=== PATIENT | female | born 1950 | race Hispanic/Latino ===

== ENCOUNTER 2024-09-09 14:10 | Observation (INO) | payer OTHER ==
[~2024-09-09] VITALS: Ht 157.5 cm; Wt 46.3 kg
[2024-09-09] MEDS: morPHINE 2 MG SYG IVP ONE ×2 (15:30→20:45)
[2024-09-09] MEDS: ondanSETRON 4MG INJ IVP ONE ×2 (15:30→20:44)
[2024-09-09 15:51] LABS: BASOPHILS # (AUTO) 0.06 K/uL (0.00-0.20); BASOPHILS % (AUTO) 0.6 % (0.0-5.0); EOSINOPHILS % (AUTO) 0.9 % (0.0-8.0); HEMATOCRIT 39.2 % (36-48); IMMATURE GRANULOCYTE ABSOLUTE 0.05 K/uL (0-1); LYMPHOCYTES # (AUTO) 1.6 K/uL (1.0-4.8); LYMPHOCYTES % (AUTO) 14.4 % (21.0-51.0); MEAN CORPUSCULAR HEMOGLOBIN 32.5 pg (27.0-33.0); MEAN CORPUSCULAR HGB CONC 33.7 g/dL (32.0-36.0); MEAN CORPUSCULAR VOLUME 96.6 fL (79-99); MONOCYTES # (AUTO) 0.5 K/uL (0.1-1.0); MONOCYTES % (AUTO) 4.8 % (3.0-13.0); NEUTROPHILS # (AUTO) 8.5 K/uL (1.8-7.7); NEUTROPHILS % (AUTO) 78.8 % (40.0-77.0); PLATELET COUNT (AUTO) 211 K/uL (130-400); RED BLOOD CELL COUNT(AUTO) 4.06 MIL/uL (4.00-5.50); RED CELL DISTRIBUTION WIDTH 13.6 % (11.0-15.5); WHITE BLOOD COUNT (AUTO) 10.8 K/uL (4.8-10.8)
[2024-09-09 16:17] LABS: B-TYPE NATRIURETIC PEPTIDE 29 pg/mL (0-100)
[2024-09-09 16:22] LABS: CREATININE 0.7 mg/dL (0.5-1.0); POTASSIUM 4.1 mmol/L (3.5-5.1)
--- NOTE | 2024-09-09 16:24 | HMCIMG ---
Exam Type: CHEST 1VW Clinical Information: CHEST PAIN Comparison: None Findings: The lungs are clear of infiltrates. The heart is normal in size. The bony and soft tissue structures of the chest are unremarkable. Impression: Clear lungs.
[2024-09-09 16:30] LABS: ALANINE AMINOTRANSFERASE 29 U/L (12-78); ALBUMIN 3.8 g/dL (3.5-5.0); ASPARTATE AMINOTRANSFERASE 26 U/L (10-37); BILIRUBIN,DIRECT < 0.1 mg/dL (0.0-0.3); BILIRUBIN,TOTAL 0.3 mg/dL (0.2-1.0); TOTAL PROTEIN, SERUM 7.7 g/dL (6.0-8.3)
[2024-09-09 16:44] LABS: APPEARANCE,URINE CLEAR (CLEAR); BILIRUBIN,URINE NEGATIVE (NEGATIVE); COLOR,URINE YELLOW (YELLOW); GLUCOSE, URINE (UA) NEGATIVE (NEGATIVE); KETONES,URINE 20 mg/dL (NEGATIVE); LEUKOCYTE ESTERASE ,URINE NEGATIVE Leu/uL (NEGATIVE); NITRATE,URINE NEGATIVE (NEGATIVE); OCCULT BLOOD,URINE SMALL (NEGATIVE); PH,URINE 5.5 (5.0-8.0); PROTEIN,URINE 30 mg/dL (NEGATIVE); UROBILINOGEN,URINE 0.2 mg/dL (0.2-1.0)
[2024-09-09 16:50] LABS: ADD UA MICROSCOPIC YES
[2024-09-09 16:52] LABS: MUCUS,URINE RARE LPF (None Seen); SQUAMOUS EPITHELIAL CELL,UR RARE /HPF (0-2); WBC,URINE 0-1 /HPF (0-1)
--- NOTE | 2024-09-09 16:54 | EKG ---
[facility] Test Date: 2024-09-09 Test Time: 15:10:37 Pat Name: JOHNSON DA SILVA Department: [facility] Room: 209 Gender: F Running Rigger: [id number] : 1950 Requested By: SYLVIA TURNER Order Number: [id number] Reading MD: Jayant Otto Measurements Intervals [place] Rate: 82 P: 48 OK: 150 QRS: 34 QRSD: 76 T: 15 QT: 364 QTc: 427 Interpretive Statements Sinus rhythm No previous ECG available for comparison Electronically Signed On 09-10-2024 14:09:12 [employer] by Jayant Otto Please click the below link to view image of tracing.
--- NOTE | 2024-09-09 18:28 | ERN ---
ED Note History of Present Illness Stated Complaint: DIZZY, STOMACH PAIN, SIATICA BACK PAIN Chief Complaint: Abdominal Pain Time Seen by MD: 17:25 Time Seen by Midlevel: 17:25 Dictation: Patient is a 74-year-old female with no past medical history who presents to the emergency department with generalized abdominal pain onset three days ago associated with nausea nonbloody vomiting x4. Patient denies any diarrhea, constipation, fevers. Reports pain radiates to the back. Allergies: Coded Allergies: No Known Drug Allergies (Unverified Allergy, Unknown, 09/09/24) Home Meds Active Scripts Famotidine (Pepcid) 40 Mg Tablet, 1 TAB PO HS for 30 Days, #30 TAB 0 Refills Prov:STEPHANIE AMAYA 09/12/24 Past Medical History Past Medical History: No Pertinent History Surgical History: None RN Note Reviewed/Agreed w/PFSH: Yes Review of System Dictation Constitutional: Negative for fever,chills, and weight loss Eyes: Negative for injury, pain,redness, and discharge ENT: Negative for injury,pain or swelling Cardiovascular: Negative for chest pain, palpitations, and edema Respiratory: Negative for shortness of breath, cough, and wheezing, Abdomen/GI: Negative for diarrhea, and constipation positive for abdominal pain, nausea and vomiting Back: Negative for injury and pain : Negative for injury, bleeding and discharge MS/Extremity: Negative for injury and deformity Skin: Negative for rash, and discoloration Neuro: Negative for headache, weakness, numbness, tingling, and seizure Psych: Negative for suicide ideation, homicidal ideation, and hallucinations Initial Vital Sign VS Vital Signs Date Time Temp Pulse Resp B/P (MAP) Pulse Ox O2 Delivery O2 Flow Rate FiO2 09/09/24 15:11 98.2 95 20 187/122 Room Air 0 09/09/24 20:00 98 21 Physical Exam Dictation Vital Signs reviewed General Appearance: Alert, oriented x 3, no acute distress, well developed, nourished. Head and Face: non-traumatic. Eyes: PERRL, pink conjunctivas, eyelid no trauma, anterior chamber with arcus senilis. Ears: Pinnas intact and no signs of trauma or erythema ear canals clear and no discharge TM no erythema Nose: No discharge, no bleeding. Oropharynx: Mouth normal, tongue pink. pharynx clear,no erythema, tonsils no exudates, no abscesses noted, mucous membrane moist Neck: Supple, non-tender, no thyromegaly, no masses, no JVD, no bruits Breast:Deferred Chest:No tenderness, no crepitus, no paradoxical movement, no retractions Lungs:Clear, well-ventilated, symmetric, no rales, no wheezing, no rhonchi, no stridor, good breath sounds bilaterally Heart: Regular rate, regular rhythm, no murmur, no gallops Vascular: no peripheral edema, Abdomen: Firm, positive bowel sounds, nondistended, no guarding, nontender, no rebound, no masses no hepatomegaly, no splenomegaly, no Gatica's sign, no hernias. Rectal: Deferred Genital: Deferred Neurological: Normal speech, motor function intact, sensory function intact Musculoskeletal: Neck nontender, full range of motion, back nontender, full range of motion, Extremities: nontender, full range of motion Skin: Color pink, dry, no turgor, no rash, no lacerations, no abrasions, no contusions. Lymphatic: Deferred Results (Laboratory/Radiology) Laboratory/Radiology Laboratory Tests Test 09/09/24 21:57 09/10/24 07:47 09/10/24 07:58 09/10/24 12:27 Whole Blood Glucose 96 MG/DL (70-110) 84 MG/DL (70-110) 71 MG/DL (70-110) White Blood Count 13.8 K/uL (4.8-10.8) #H Red Blood Count 3.94 MIL/uL (4.00-5.50) L Hemoglobin 12.5 g/dL (12.0-16.0) Hematocrit 37.7 % (36-48) Mean Corpuscular Volume 95.7 fL (79-99) Mean Corpuscular Hemoglobin 31.7 pg (27.0-33.0) Mean Corpuscular Hemoglobin Concent 33.2 g/dL (32.0-36.0) Red Cell Distribution Width 13.6 % (11.0-15.5) Platelet Count 184 K/uL (130-400) Mean Platelet Volume 11.9 fL (7.5-10.5) H Immature Granulocyte % (Auto) 0.5 % (0-1) Neutrophils (%) (Auto) 79.7 % (40.0-77.0) H Lymphocytes (%) (Auto) 11.3 % (21.0-51.0) L Monocytes (%) (Auto) 6.3 % (3.0-13.0) Eosinophils (%) (Auto) 1.8 % (0.0-8.0) Basophils (%) (Auto) 0.4 % (0.0-5.0) Neutrophils # (Auto) 11.0 K/uL (1.8-7.7) H Lymphocytes # (Auto) 1.6 K/uL (1.0-4.8) Monocytes # (Auto) 0.9 K/uL (0.1-1.0) Eosinophils # (Auto) 0.25 K/uL (0.00-0.70) Basophils # (Auto) 0.05 K/uL (0.00-0.20) Absolute Immature Granulocyte (auto 0.07 K/uL (0-1) Nucleated Red Blood Cells 0.0 % (0.0-0.19) Phosphorus Level 4.6 mg/dL (2.5-4.9) Magnesium Level 2.20 mg/dL (1.80-2.40) Thyroid Stimulating Hormone (TSH) 1.71 uIU/mL (0.36-3.74) Test 09/10/24 16:28 09/10/24 20:20 09/11/24 04:08 09/11/24 06:28 Whole Blood Glucose 69 MG/DL (70-110) L 68 MG/DL (70-110) L 61 MG/DL (70-110) L White Blood Count 6.3 K/uL (4.8-10.8) # Red Blood Count 3.58 MIL/uL (4.00-5.50) L Hemoglobin 11.5 g/dL (12.0-16.0) L Hematocrit 35.1 % (36-48) L Mean Corpuscular Volume 98.0 fL (79-99) Mean Corpuscular Hemoglobin 32.1 pg (27.0-33.0) Mean Corpuscular Hemoglobin Concent 32.8 g/dL (32.0-36.0) Red Cell Distribution Width 13.4 % (11.0-15.5) Platelet Count 169 K/uL (130-400) Mean Platelet Volume 11.8 fL (7.5-10.5) H Immature Granulocyte % (Auto) 0.3 % (0-1) Neutrophils (%) (Auto) 54.5 % (40.0-77.0) Lymphocytes (%) (Auto) 27.3 % (21.0-51.0) Monocytes (%) (Auto) 9.2 % (3.0-13.0) Eosinophils (%) (Auto) 7.6 % (0.0-8.0) Basophils (%) (Auto) 1.1 % (0.0-5.0) Neutrophils # (Auto) 3.4 K/uL (1.8-7.7) Lymphocytes # (Auto) 1.7 K/uL (1.0-4.8) Monocytes # (Auto) 0.6 K/uL (0.1-1.0) Eosinophils # (Auto) 0.48 K/uL (0.00-0.70) Basophils # (Auto) 0.07 K/uL (0.00-0.20) Absolute Immature Granulocyte (auto 0.02 K/uL (0-1) Nucleated Red Blood Cells 0.0 % (0.0-0.19) Sodium Level 138 mmol/L (136-145) Potassium Level 4.2 mmol/L (3.5-5.1) Chloride Level 104 mmol/L (101-111) Carbon Dioxide Level 29 mmol/L (21-32) Blood Urea Nitrogen 12 mg/dL (7-18) Creatinine 0.7 mg/dL (0.5-1.0) Glomerular Filtration Rate Calc 92 mL/min (>90) Random Glucose 64 mg/dL (70-105) L Total Calcium 8.5 mg/dL (8.5-10.1) Test 09/11/24 11:22 09/11/24 15:40 Whole Blood Glucose 75 MG/DL (70-110) 66 MG/DL (70-110) L REASON: Abdominal pain ORDERING PHYSICIAN: ELLIS MENDOZA MD PROCEDURE: ABD PEL WO - CT ABDOMEN/PELVIS W/O CONTRAST Exam Type: CT ABDOMEN/PELVIS W/O CONTRAST Clinical Information: Abdominal pain Comparison: None CT Dose Index (CTDI): 10.20 mGy Dose Length Product (DLP): 530.00 total mGy-cm PROTOCOL: Routine noncontrast helical scanning of the abdomen and pelvis was performed at 5mm collimation. Findings: No evidence of nephro or ureterolithiasis is found. No hydronephrosis or ureteral dilatation is seen. The lung bases are clear. The stomach is unremarkable. It shows no wall thickening. No gross ulceration is seen. It is not overly distended. There are no surrounding inflammatory changes. No wall lesions are identified to suggest cancer. The spleen is unremarkable. It is not enlarged. The pancreas shows normal anatomy. It is not fatty replaced. It shows no lesions. The pancreatic duct is not dilated. The gallbladder is surgically absent and there is significant dilatation of the common bile duct without intrahepatic bile duct dilatation. This probably represents reservoir effect. The adrenal glands are unremarkable. There is no enlargement. No lesions are noted. The liver is unremarkable. It shows no focal masses. Except for simple cysts The appendix is unremarkable. It shows no evidence of inflammation. No appendicolith is seen. The small bowel is unremarkable. There is no evidence of dilatation to suggest obstruction. No evidence of adynamic ileus is seen. There is no small bowel wall thickening to suggest enteritis. Abundant fecal matter is noted throughout the colon consistent with constipation. The urinary bladder is unremarkable. There is no wall thickening to suggest tumor or inflammation. There are no intraluminal calculi. There are no diverticula. There is no evidence of chronic bladder outlet obstruction. There is no evidence of urinary bladder distention to suggest urinary retention. The other pelvic structures are unremarkable. The bony and vascular structures are unremarkable for the patient's age. IMPRESSION: The gallbladder is surgically absent and there is significant dilatation of the common bile duct without intrahepatic bile duct dilatation. This probably represents reservoir effect. This study was performed using dose reduction techniques to include automated exposure control and/or adjustment of the mA and/or kV according to patient size. REASON: CHEST PAIN ORDERING PHYSICIAN: SYLVIA TURNER MD PROCEDURE: CXR1VW - CHEST 1VW Exam Type: CHEST 1VW Clinical Information: CHEST PAIN Comparison: None Findings: The lungs are clear of infiltrates. The heart is normal in size. The bony and soft tissue structures of the chest are unremarkable. Impression: Clear lungs Labs Reviewed?: Yes EKG: (+) rhythm (Sinus rhythm) EKG Comment: EKG 09/09/2024 1510 ventricular rate 82, regular rate and rhythm, normal sinus rhythm, no STEMI ED Course ED Course Orders Procedure Category Date Status Time Admit Orders ADM 09/09/24 Transmitted 20:32 Ondansetron 4mg Inj PHA 09/09/24 Complete (Zofran 4mg Inj) 21:00 Morphine 2mg Syg PHA 09/09/24 Complete (Morphine 2mg Syg) 21:00 Vital Signs Every 4 CPOE 09/09/24 Transmitted Hours 20:36 Npo Except For Meds CPOE 09/09/24 Transmitted 20:36 O2 Order RT 09/09/24 Transmitted 20:36 Cbc With Differential LAB 09/10/24 Complete 04:00 Magnesium LAB 09/10/24 Complete 04:00 Phosphorus LAB 09/10/24 Complete 04:00 Thyroid Stimulating LAB 09/10/24 Complete Hormone 04:00 Enoxaparin Sodium 30 PHA 09/10/24 Complete Mg/0.3 Ml (Lovenox) 09:00 Acetaminophen 325 Tab PHA 09/09/24 Complete (Tylenol 325mg Tab 21:00 Acetaminophen 650mg PHA 09/09/24 Complete Supp (Tylenol 650mg 21:00 Lactulose 20 Gm/30 Ml PHA 09/09/24 Complete Udcup (Constulose 21:00 Docusate Sodium 100 PHA 09/09/24 Complete Mg Cap (Colace 100mg 21:00 Temazepam 15 Mg Cap PHA 09/09/24 Complete (Restoril 15 Mg Cap) 21:00 Ondansetron 4mg Inj PHA 09/09/24 Complete (Zofran 4mg Inj) 21:00 Hydralazine 20mg Inj PHA 09/09/24 Complete (Apresoline 20mg In 21:00 Apply Scds CPOE 09/09/24 Transmitted 20:36 Telemetry Monitoring CPOE 09/09/24 Transmitted 20:36 Initiate QUAN 09/09/24 Complete Hyperglycemia Protoco 20:36 Insulin Regular, PHA 09/09/24 Complete Human 3ml (Humulin R 21:00 Magnesium 2gm Premix PHA 09/09/24 Complete 50ml (Magnesium 2gm 21:00 Initiate Hypokalemia CPOE 09/09/24 Transmitted Npo Half 20:36 Potassium Chloride PHA 09/09/24 Complete 10meq/100ml (Potassiu 21:00 Notify Physician If CPOE 09/09/24 Transmitted There Is 20:36 Notify Md On The Next CPOE 09/09/24 Transmitted 20:36 Notify Md On The OE 09/09/24 Transmitted Next(Cont.) 20:36 Initiate Hypoglycemia QUAN 09/09/24 Complete Protocol 20:36 Dextrose 50%-Water PHA 09/09/24 Complete (D50w) 21:00 Glucagon 1mg Kit PHA 09/09/24 Complete (Glucagon 1mg Kit) 21:00 Morphine 2mg Syg PHA 09/09/24 Complete (Morphine 2mg Syg) 21:00 Npo Except For Meds [facility] 09/09/24 Transmitted 20:48 Lactated Ringers PHA 09/09/24 Complete 1000ml (Lactated 21:00 Zosyn 3.375gm+Ns 50ml PHA 09/10/24 Complete (Zosyn 3.375gm+Ns 03:00 Bisacodyl (Dulcolax) PHA 09/10/24 Complete 09:30 Bisacodyl (Dulcolax) PHA 09/10/24 Complete 09:30 Lactulose 20 Gm/30 Ml PHA 09/10/24 Complete Udcup (Constulose 09:30 Lactulose 20 Gm/30 Ml PHA 09/10/24 Complete Udcup (Constulose 09:30 Polyethylene Glycol PHA 09/10/24 Complete 3350 (Miralax 3350 1 09:30 Gastroenterology CONPHYSVC 09/10/24 Transmitted Consult 09:15 Basic Metabolic Panel LAB 09/11/24 Complete 04:00 Cbc With Differential LAB 09/11/24 Complete 04:00 Transfer To: [facility] 09/10/24 Transmitted 12:04 Clear Liquid DIET 09/11/24 Complete Breakfast Gi Soft/[place] Diet DIET 09/11/24 Complete Lunch *General Dc DS 09/11/24 Transmitted Instructions 18:41 Vital Signs Date Time Temp Pulse Resp B/P (MAP) Pulse Ox O2 Delivery O2 Flow Rate FiO2 09/11/24 16:00 97.9 59 16 152/70 98 09/11/24 12:00 98.1 66 16 151/68 98 09/11/24 08:45 96 Room Air* 0 21 09/11/24 08:00 97.5 67 16 158/63 96 09/11/24 06:00 98.4 70 18 154/80 98 Room Air 09/11/24 04:25 98.4 76 16 150/70 99 Room Air 09/11/24 00:00 98.6 79 18 155/76 95 Room Air 09/10/24 20:00 96 Room Air* 0 21 09/10/24 19:23 97.5 70 18 157/68 97 Room Air 09/10/24 16:00 98.1 68 20 155/74 99 Room Air 09/10/24 12:00 99.0 66 15 124/58 97 Room Air 09/10/24 11:41 96 Room Air* 0 21 09/10/24 09:00 99.1 72 11 165/80 96 Room Air 09/10/24 07:20 70 17 128/43 96 Room Air* 0 21 09/10/24 06:08 98.8 75 18 128/52 98 Room Air* 0 21 09/10/24 00:04 98.1 80 17 141/54 98 Room Air* 0 09/09/24 21:46 69 17 160/74 98 Room Air* 0 21 Medical Decision Making MDM MDM: Patient is a 74-year-old female with no past medical history who presents to the emergency department with generalized abdominal pain onset three days ago associated with nausea nonbloody vomiting x4. Patient denies any diarrhea, constipation, fevers. Reports pain radiates to the back. CBC showed no leukocytosis, no anemia, chemistry showed normal renal function, normal lipase, normal liver enzymes, slight elevated blood glucose, CT abdomen showed dilated common bile duct. Patient will be admitted for further manageme nt Differential diagnosis: Constipation, bowel obstruction, electrolyte imbalance, ACS Comorbidities: Cholecystectomy Tests considered and not ordered secondary to shared decision making include: none Previous outside records reviewed: none Risk of complication and/or morbidity or mortality of patient management: The patient meets criteria for admission. Need for emergency major/minor surgery: No There are no social concerns with this patient. I independently interpreted the tests I ordered (labs, urinalysis, etc.). I discussed the case with the hospitalist for admission. Diane hall who accepts admission I discussed the case with the following specialists: none. Historian: pateint. I independently interpreted imaging studies and EKGs that I ordered (US, CT, XR, EKG, etc.). External chart review: none. Medical management and examination interpretation discussions were had by me with other qualified healthcare professionals as indicated for the patient's care. DX & DISP Disposition: Inpatient Decision to Admit Date: Sep 09, 2024 Decision to Admit Time: 20:32 Departure Impression: Primary Impression: Common bile duct dilatation Additional Impressions: Abdominal pain, Nausea and vomiting Condition: Stable Scripts Famotidine (Pepcid) 40 Mg Tablet 1 TAB PO HS for 30 Days, #30 TAB 0 Refills Prov: STEPHANIE AMAYA 09/12/24 Referrals: LAMINE HUERTA MD (PCP) I have reviewed the case, and I agree with, Diagnosis and Plan ATTESTATION BY PHYSICIAN I PERFORMED THE SUBSTANTIVE PORTION OF THE VISIT. I HAVE REVIEWED AND PERSONALLY MADE AND APPROVED THE MANAGEMENT PLAN THAT IS DOCUMENTED IN THE NOTE BY MYSELF FOR THE A PP. I ACKNOWLEDGED FOR RESPONSIBILITY FOR THE PATIENT'S MANAGEMENT PLAN. FRANNY CONTRERAS Sep 09, 2024 18:28 KEREN ESTEVEZ MD Sep 12, 2024 20:18
--- NOTE | 2024-09-09 18:58 | HMCIMG ---
Exam Type: CT ABDOMEN/PELVIS W/O CONTRAST Clinical Information: Abdominal pain Comparison: None CT Dose Index (CTDI): 10.20 mGy Dose Length Product (DLP): 530.00 total mGy-cm PROTOCOL: Routine noncontrast helical scanning of the abdomen and pelvis was performed at 5mm collimation. Findings: No evidence of nephro or ureterolithiasis is found. No hydronephrosis or ureteral dilatation is seen. The lung bases are clear. The stomach is unremarkable. It shows no wall thickening. No gross ulceration is seen. It is not overly distended. There are no surrounding inflammatory changes. No wall lesions are identified to suggest cancer. The spleen is unremarkable. It is not enlarged. The pancreas shows normal anatomy. It is not fatty replaced. It shows no lesions. The pancreatic duct is not dilated. The gallbladder is surgically absent and there is significant dilatation of the common bile duct without intrahepatic bile duct dilatation. This probably represents reservoir effect. The adrenal glands are unremarkable. There is no enlargement. No lesions are noted. The liver is unremarkable. It shows no focal masses. Except for simple cysts The appendix is unremarkable. It shows no evidence of inflammation. No appendicolith is seen. The small bowel is unremarkable. There is no evidence of dilatation to suggest obstruction. No evidence of adynamic ileus is seen. There is no small bowel wall thickening to suggest enteritis. Abundant fecal matter is noted throughout the colon consistent with constipation. The urinary bladder is unremarkable. There is no wall thickening to suggest tumor or inflammation. There are no intraluminal calculi. There are no diverticula. There is no evidence of chronic bladder outlet obstruction. There is no evidence of urinary bladder distention to suggest urinary retention. The other pelvic structures are unremarkable. The bony and vascular structures are unremarkable for the patient's age. IMPRESSION: The gallbladder is surgically absent and there is significant dilatation of the common bile duct without intrahepatic bile duct dilatation. This probably represents reservoir effect. This study was performed using dose reduction techniques to include automated exposure control and/or adjustment of the mA and/or kV according to patient size.
[2024-09-09] MEDS: PANTOPrazole 40 MG/VIAL IVP ONE (20:43)
[2024-09-09] MEDS: LACTATED RINGERS 1000ML 1,000 ML IV SCH (20:58)
[2024-09-09] MEDS ORDERED: PoTASSium chloRIDE 10MEQ/100ML 100 ML IV PRN (21:00)
[2024-09-09] MEDS ORDERED: LACTULOSE 20 GM/30 ML UDCUP PO PRN (21:00)
[2024-09-09] MEDS ORDERED: MAGNESIUM 2GM PREMIX 50ML 50 ML IV PRN (21:00)
[2024-09-09] MEDS ORDERED: doCUSate SODIUM 100 MG CAP PO PRN (21:00)
[2024-09-09] MEDS ORDERED: acetaMINOPHEN 325 MG TAB PO PRN (21:00)
[2024-09-09] MEDS ORDERED: DEXTROSE 50%-WATER 50 ML DISP.SYRIN IV PRN (21:00)
[2024-09-09] MEDS ORDERED: hydrALAZine 20MG/ML VIAL IV PRN (21:00)
[2024-09-09] MEDS ORDERED: TEMAZepam 15 MG CAPSULE PO PRN (21:00)
[2024-09-09] MEDS ORDERED: ondanSETRON 4MG INJ IVP PRN (21:00)
[2024-09-09] MEDS ORDERED: GLUCAGON 1MG KIT 1 MG ML IM PRN (21:00)
[2024-09-09] MEDS ORDERED: acetaMINOPHEN 650 MG SUPPOSITORY RC PRN (21:00)
[2024-09-09] MEDS: INSULIN humuLIN R 100 UNIT/ML 3ML SQ SCH (21:00)
[2024-09-09] MEDS: morPHINE 2 MG SYG IVP PRN (22:59)
--- NOTE | 2024-09-10 00:29 | HP ---
[facility] HISTORY & PHYSICAL Date Patient Seen: Sep 10, 2024 Time of Visit: 00:29 Supervising Physician: Dr. Sky Wallis Primary Care Physician: Dr. Roby Cornelius Outpatient Specialists: Inpatient Consults: General surgery: Dr. Laly Keane PROBLEM LIST: Common bile duct dilatation, POA Dehydration (ketonuria, elevated BUN) Acute intractable abdominal pain, POA Intra-abdominal infection (neut % 78.8, lymph % 14.4, neut 8.5.) Acute nausea and vomiting, POA hx of Cholecystectomy HPI: Ms River is a 74-year-old female with no past medical history who presents to the emergency department with generalized abdominal pain onset three days ago associated with nausea nonbloody vomiting x4. Patient denies any diarrhea, constipation, fevers. Reports pain radiates to the back. EKG: SR. CT abdomen and pelvis w/o contrast: The gallbladder is surgically absent and there is significant dilatation of the common bile duct without intrahepatic bile duct dilatation. This probably represents reservoir effect. Chest x-ray: The lungs are clear of infiltrates. The heart is normal in size. The bony and soft tissue structures of the chest are unremarkable. ED provider request patient be admitted with the diagnosis of common bile duct dilatation, abdominal pain, nausea and vomiting. Patient was seen/ assessed by me at bedside in ED 18. Patient appeared comfortable and in no distress. Patient reports that all of a sudden her abdomen starts bloating which causes the pain. Patient reports that she thinks she might have a fever but has not taken a temperature. I informed the patient of labs, diagnostics, and plan of care. The patient verbalized understanding and is agreement with the plan. Plan and assessment are listed below. PAST MEDICAL HX: see above PAST SURGICAL HX: noncontributory SOCIAL HISTORY: No tobacco, ETOH, or illicit drug use Coded Allergies: No Known Drug Allergies (Unverified Allergy, Unknown, 09/09/24) REVIEW OF SYSTEMS: 12 point ROS reviewed with patient. Pertinent positives mentioned above. Otherwise negative. PHYSICAL EXAM: GENERAL: alert, weak, awake oriented x 3 HEENT: EOMI, Sclera non icteric, moist mucosa NECK: Supple, no JVD, trachea midline LUNGS: Clear breath sounds bilaterally. No wheezes HEART: Regular rate and rhythm. Normal S1 and S2, without murmurs ABD: Abdomen soft, generalized tenderness. Bowel sounds present EXT: No clubbing cyanosis or edema NEURO: Alert and oriented X3, follows commands Vital Signs (last 8hr) Date Time Temp Pulse Resp B/P (MAP) Pulse Ox O2 Delivery O2 Flow Rate FiO2 09/10/24 00:04 98.1 80 17 141/54 98 Room Air* 0 21 09/09/24 21:46 69 17 160/74 98 Room Air* 0 21 09/09/24 20:00 97.9 89 16 137/83 98 Room Air* 0 21 LABS: Hematology Labs: Test 09/09/24 15:32 Range/Units White Blood Count 10.8 4.8-10.8 K/uL Red Blood Count 4.06 4.00-5.50 MIL/uL Hemoglobin 13.2 12.0-16.0 g/dL Hematocrit 39.2 36-48 % Mean Corpuscular Volume 96.6 79-99 fL Mean Corpuscular Hemoglobin 32.5 27.0-33.0 pg Mean Corpuscular Hemoglobin Concent 33.7 32.0-36.0 g/dL Red Cell Distribution Width 13.6 11.0-15.5 % Platelet Count 211 130-400 K/uL Mean Platelet Volume 11.6 H 7.5-10.5 fL Immature Granulocyte % (Auto) 0.5 0-1 % Neutrophils (%) (Auto) 78.8 H 40.0-77.0 % Lymphocytes (%) (Auto) 14.4 L 21.0-51.0 % Monocytes (%) (Auto) 4.8 3.0-13.0 % Eosinophils (%) (Auto) 0.9 0.0-8.0 % Basophils (%) (Auto) 0.6 0.0-5.0 % Neutrophils # (Auto) 8.5 H 1.8-7.7 K/uL Lymphocytes # (Auto) 1.6 1.0-4.8 K/uL Monocytes # (Auto) 0.5 0.1-1.0 K/uL Eosinophils # (Auto) 0.10 0.00-0.70 K/uL Basophils # (Auto) 0.06 0.00-0.20 K/uL Absolute Immature Granulocyte (auto 0.05 0-1 K/uL Nucleated Red Blood Cells 0.0 0.0-0.19 % Chemistry Labs: Test 09/09/24 15:32 Range/Units Sodium Level 140 136-145 mmol/L Potassium Level 4.1 3.5-5.1 mmol/L Chloride Level 103 101-111 mmol/L Carbon Dioxide Level 28 21-32 mmol/L Blood Urea Nitrogen 19 H 7-18 mg/dL Creatinine 0.7 0.5-1.0 mg/dL Glomerular Filtration Rate Calc 92 >90 mL/min Random Glucose 125 H 70-105 mg/dL Lactic Acid Level 1.2 0.8-2.5 mmol/L Total Calcium 9.3 8.5-10.1 mg/dL Total Bilirubin 0.3 0.2-1.0 mg/dL Direct Bilirubin < 0.1 0.0-0.3 mg/dL Aspartate Amino Transf (AST/SGOT) 26 10-37 U/L Alanine Aminotransferase (ALT/SGPT) 29 12-78 U/L Alkaline Phosphatase 87 50-136 U/L Total Creatine Kinase 42 21-232 U/L B-Type Natriuretic Peptide 29 0-100 pg/mL Total Protein 7.7 6.0-8.3 g/dL Albumin 3.8 3.5-5.0 g/dL Lipase 49 16-77 U/L Procalcitonin 0.07 0.05-0.5 ng/mL DIAGNOSTICS / RADIOLOGY RESULTS: [ ] PLAN Admit patient to medical floor with telemetry monitoring. NPO for now. Consult general surgery. LR at 75 mL/hour. Zosyn 3.375 IV q.8 hours. P.r.n. medications for: Pain management, nausea, vomiting, fever, constipation, hypertension. Monitor renal and liver function. Monitor electrolytes and treat accordingly. DVT and GI prophylaxis. NEURO: Minimize central acting medications as possible. Maintain fall precautions, adequate lighting during the day PULMONARY: Supplemental 02 as needed. Maintain aspiration precautions at all times CARDIOVASCULAR: Follow hemodynamics. Vital signs per facility protocol GI & NUTRITION: Continue with nutritional support. Continue stool softeners and laxatives as needed. KIDNEYS & ELECTROLYTES: Strict monitoring of intake, output and overall fluid balance. Avoid nephrotoxic medications to the extent possible. Medications to be dosed according to renal function. Monitor electrolytes and replace as needed ENDOCRINE: Maintain blood glucose between 100-180 at all times. Hypoglycemia protocol in place INFECTIOUS DISEASE: Trend temperature, WBC and procalcitonin level Follow cultures, deescalate antibiotics as soon as possible. Panculture if new onset fever ONCOLOGY/HEMATOLOGY/COAGULATION: Monitor for s/s of bleeding Monitor hemoglobin, coagulation studies as needed SKIN: Pressure ulcer prevention per facility protocol Specialty mattress ORTHO/REHAB: Continue PT/OT Prophylaxis: Continue GI and DVT prophylaxis Code Status: Full Resuscitation Disposition: TBD The patient has seen and evaluated, the case has been discussed with the MODEL PHOTOGRAPHERS', I agree with the clinical findings and plan of care, time spend at the bedside more than 40 minutes. GUMARO ZENG Sep 10, 2024 00:29 SKY WALLIS MD Sep 16, 2024 10:57
[2024-09-10] MEDS: ZOSYN 3.375GM +NS 50ML IVPB SCH (05:09)
--- NOTE | 2024-09-10 05:09 | NUR ---
ASSUMED PT CARE
--- NOTE | 2024-09-10 05:24 | NUR ---
MED REC PT NOT ON ANY HOME MEDS
[2024-09-10 08:14] LABS: BASOPHILS # (AUTO) 0.05 K/uL (0.00-0.20); BASOPHILS % (AUTO) 0.4 % (0.0-5.0); EOSINOPHILS # (AUTO) 0.25 K/uL (0.00-0.70); EOSINOPHILS % (AUTO) 1.8 % (0.0-8.0); HEMATOCRIT 37.7 % (36-48); IMMATURE GRANULOCYTE ABSOLUTE 0.07 K/uL (0-1); LYMPHOCYTES # (AUTO) 1.6 K/uL (1.0-4.8); LYMPHOCYTES % (AUTO) 11.3 % (21.0-51.0); MEAN CORPUSCULAR HEMOGLOBIN 31.7 pg (27.0-33.0); MEAN CORPUSCULAR HGB CONC 33.2 g/dL (32.0-36.0); MEAN CORPUSCULAR VOLUME 95.7 fL (79-99); MONOCYTES # (AUTO) 0.9 K/uL (0.1-1.0); MONOCYTES % (AUTO) 6.3 % (3.0-13.0); NEUTROPHILS % (AUTO) 79.7 % (40.0-77.0); PLATELET COUNT (AUTO) 184 K/uL (130-400); RED BLOOD CELL COUNT(AUTO) 3.94 MIL/uL (4.00-5.50); RED CELL DISTRIBUTION WIDTH 13.6 % (11.0-15.5); WHITE BLOOD COUNT (AUTO) 13.8 K/uL (4.8-10.8)
--- NOTE | 2024-09-10 08:21 | NUR ---
gave report to cole no concenrs voiced
[2024-09-10 08:36] LABS: MAGNESIUM 2.2 mg/dL (1.80-2.40); PHOSPHORUS 4.6 mg/dL (2.5-4.9)
[2024-09-10 09:00] VITALS: BP 165/80; PULSE 72; RESP 11; TEMP 99.1
[2024-09-10 09:01] LABS: THYROID STIMULATING HORMONE 1.71 uIU/mL (0.36-3.74)
--- NOTE | 2024-09-10 09:17 | PN ---
[facility] PROGRESS NOTE Date Patient Seen: Sep 10, 2024 Time of Visit: 09:15 Supervising Physician: Dr. Wallis Primary Care Physician: Dr. Roby Cornelius Outpatient Specialists: Inpatient Consults: General surgery: Dr. Laly Keane PROBLEM LIST: Constipation Common bile duct dilatation, POA Acute abdominal pain, POA Acute nausea and vomiting, POA Emaciated Hx. Cholecystectomy INTERVAL HISTORY: 09/10 patient is awake alert oriented x3 no acute event overnight. Vital signs with blood pressure 120 over 50, heart rate is 70 respiratory rate is 17. T-max 98.8 and remains on room air with sats 96%. Abdominal pain is tolerated, CT scan of the abdomen with dilatation common bile duct no indication of acute inflammation. She has stool burden in the colon. Optimize bowel regimen. Continue with IV fluids. Ambulation. REVIEW OF SYSTEMS: 12 point ROS reviewed with patient. Pertinent positives mentioned above. Otherwise negative. PHYSICAL EXAM: GENERAL: alert, weak, awake oriented x 3 HEENT: EOMI, Sclera non icteric, moist mucosa NECK: Supple, no JVD, trachea midline LUNGS: Clear breath sounds bilaterally. No wheezes HEART: Regular rate and rhythm. Normal S1 and S2, without murmurs ABD: Abdomen soft, nontender. Bowel sounds present EXT: No clubbing cyanosis or edema NEURO: Alert and oriented to person, follows commands Vital Signs (last 8hr) Date Time Temp Pulse Resp B/P (MAP) Pulse Ox O2 Delivery O2 Flow Rate FiO2 09/10/24 07:20 70 17 128/43 96 Room Air* 0 21 09/10/24 06:08 98.8 75 18 128/52 98 Room Air* 0 21 LABS: Hematology Labs: Test 09/10/24 07:58 Range/Units White Blood Count 13.8 #H 4.8-10.8 K/uL Red Blood Count 3.94 L 4.00-5.50 MIL/uL Hemoglobin 12.5 12.0-16.0 g/dL Hematocrit 37.7 36-48 % Mean Corpuscular Volume 95.7 79-99 fL Mean Corpuscular Hemoglobin 31.7 27.0-33.0 pg Mean Corpuscular Hemoglobin Concent 33.2 32.0-36.0 g/dL Red Cell Distribution Width 13.6 11.0-15.5 % Platelet Count 184 130-400 K/uL Mean Platelet Volume 11.9 H 7.5-10.5 fL Immature Granulocyte % (Auto) 0.5 0-1 % Neutrophils (%) (Auto) 79.7 H 40.0-77.0 % Lymphocytes (%) (Auto) 11.3 L 21.0-51.0 % Monocytes (%) (Auto) 6.3 3.0-13.0 % Eosinophils (%) (Auto) 1.8 0.0-8.0 % Basophils (%) (Auto) 0.4 0.0-5.0 % Neutrophils # (Auto) 11.0 H 1.8-7.7 K/uL Lymphocytes # (Auto) 1.6 1.0-4.8 K/uL Monocytes # (Auto) 0.9 0.1-1.0 K/uL Eosinophils # (Auto) 0.25 0.00-0.70 K/uL Basophils # (Auto) 0.05 0.00-0.20 K/uL Absolute Immature Granulocyte (auto 0.07 0-1 K/uL Nucleated Red Blood Cells 0.0 0.0-0.19 % Chemistry Labs: Test 09/10/24 07:58 09/09/24 15:32 Range/Units Phosphorus Level 4.6 2.5-4.9 mg/dL Magnesium Level 2.20 1.80-2.40 mg/dL Thyroid Stimulating Hormone (TSH) 1.71 0.36-3.74 uIU/mL Sodium Level 140 136-145 mmol/L Potassium Level 4.1 3.5-5.1 mmol/L Chloride Level 103 101-111 mmol/L Carbon Dioxide Level 28 21-32 mmol/L Blood Urea Nitrogen 19 H 7-18 mg/dL Creatinine 0.7 0.5-1.0 mg/dL Glomerular Filtration Rate Calc 92 >90 mL/min Random Glucose 125 H 70-105 mg/dL Lactic Acid Level 1.2 0.8-2.5 mmol/L Total Calcium 9.3 8.5-10.1 mg/dL Total Bilirubin 0.3 0.2-1.0 mg/dL Direct Bilirubin < 0.1 0.0-0.3 mg/dL Aspartate Amino Transf (AST/SGOT) 26 10-37 U/L Alanine Aminotransferase (ALT/SGPT) 29 12-78 U/L Alkaline Phosphatase 87 50-136 U/L Total Creatine Kinase 42 21-232 U/L B-Type Natriuretic Peptide 29 0-100 pg/mL Total Protein 7.7 6.0-8.3 g/dL Albumin 3.8 3.5-5.0 g/dL Lipase 49 16-77 U/L Procalcitonin 0.07 0.05-0.5 ng/mL DIAGNOSTICS / RADIOLOGY RESULTS: [ ] PLAN NEURO: Minimize central acting medications as possible. Maintain fall precautions, adequate lighting during the day PULMONARY: Supplemental 02 as needed. Maintain aspiration precautions at all times CARDIOVASCULAR: Follow hemodynamics. Vital signs per facility protocol GI & NUTRITION: Continue with nutritional support. Continue stool softeners and laxatives as needed. KIDNEYS & ELECTROLYTES: Strict monitoring of intake, output and overall fluid balance. Avoid nephrotoxic medications to the extent possible. Medications to be dosed according to renal function. Monitor electrolytes and replace as needed ENDOCRINE: Maintain blood glucose between 100-180 at all times. Hypoglycemia protocol in place INFECTIOUS DISEASE: Trend temperature, WBC and procalcitonin level Follow cultures, deescalate antibiotics as soon as possible. Panculture if new onset fever ONCOLOGY/HEMATOLOGY/COAGULATION: Monitor for s/s of bleeding Monitor hemoglobin, coagulation studies as needed SKIN: Pressure ulcer prevention per facility protocol Specialty mattress ORTHO/REHAB: Continue PT/OT Prophylaxis: Continue GI and DVT prophylaxis Code Status: Full Resuscitation Disposition: TBD Other: Total patient care time exceeds 35 minutes excluding all procedures. The patient has seen and evaluated, the case has been discussed with the SUPERVISOR CURING ROOM, I agree with the clinical findings and plan of care, time spend at the bedside more than 40 minutes. PADMINI MARRERO CNP Sep 10, 2024 09:17 DYLON WALLIS MD Sep 16, 2024 10:57
[2024-09-10] MEDS ORDERED: LACTULOSE 20 GM/30 ML UDCUP PO PRN (09:30)
[2024-09-10] MEDS ORDERED: BisaCODYL 10 MG SUPP.RECT RC PRN (09:30)
--- NOTE | 2024-09-10 10:20 | NUR ---
Called to GI Specialist to inform of consult for Dr. Hart. Answering service stated they would pass on the message.
[2024-09-10] MEDS: LACTULOSE 20 GM/30 ML UDCUP PO ONE (10:34)
[2024-09-10] MEDS: BisaCODYL 10 MG SUPP.RECT RC ONE (10:35)
[2024-09-10] MEDS: polyETHYLene GLYCol 3350 17 GM POWD.PACK PO SCH (10:36)
[2024-09-10] MEDS: ENOXAPARIN SODIUM 30 MG/0.3 ML SQ SCH (10:37)
[2024-09-10 11:41] VITALS: O2SAT 96
[2024-09-10 12:00] VITALS: BP 124/58; PULSE 66; RESP 15; TEMP 98.9
[2024-09-10 16:00] VITALS: BP 155/74; PULSE 68; RESP 20; TEMP 98
[2024-09-10 19:23] VITALS: BP 157/68; PULSE 70; RESP 18; TEMP 97.6
[2024-09-10 20:00] VITALS: O2SAT 96
[2024-09-11] VITALS (7 sets, daily range): BP systolic 150–158; BP diastolic 63–80; PULSE 59–79; RESP 16–18; TEMP 97.6–98.6; O2SAT 96
[2024-09-11 04:30] LABS: BASOPHILS # (AUTO) 0.07 K/uL (0.00-0.20); BASOPHILS % (AUTO) 1.1 % (0.0-5.0); EOSINOPHILS # (AUTO) 0.48 K/uL (0.00-0.70); EOSINOPHILS % (AUTO) 7.6 % (0.0-8.0); HEMATOCRIT 35.1 % (36-48); IMMATURE GRANULOCYTE ABSOLUTE 0.02 K/uL (0-1); LYMPHOCYTES # (AUTO) 1.7 K/uL (1.0-4.8); LYMPHOCYTES % (AUTO) 27.3 % (21.0-51.0); MEAN CORPUSCULAR HEMOGLOBIN 32.1 pg (27.0-33.0); MEAN CORPUSCULAR HGB CONC 32.8 g/dL (32.0-36.0); MONOCYTES # (AUTO) 0.6 K/uL (0.1-1.0); MONOCYTES % (AUTO) 9.2 % (3.0-13.0); NEUTROPHILS # (AUTO) 3.4 K/uL (1.8-7.7); NEUTROPHILS % (AUTO) 54.5 % (40.0-77.0); PLATELET COUNT (AUTO) 169 K/uL (130-400); RED BLOOD CELL COUNT(AUTO) 3.58 MIL/uL (4.00-5.50); RED CELL DISTRIBUTION WIDTH 13.4 % (11.0-15.5); WHITE BLOOD COUNT (AUTO) 6.3 K/uL (4.8-10.8)
[2024-09-11 04:59] LABS: CREATININE 0.7 mg/dL (0.5-1.0); POTASSIUM 4.2 mmol/L (3.5-5.1)
--- NOTE | 2024-09-11 05:22 | NUR ---
Transfer to 325 Report given to MELISSA Olson. All questions answered. Patient awake and alert denies chest pain shortness of breath. Transferred to room 325 via wheelchair. [place] () notified of transfer
--- NOTE | 2024-09-11 07:23 | NUR ---
NURSING NOTES TRANSFERRED FROM ICU @ AROUND 0545 WITH DIAGNOSIS OF INTRACTABLE ABD PAIN, DILATATION OF CBD AND DIZZINESS, AAOX3. DENIES C/O PAIN. BREATHING EVEN AND UNLABORED. BLOOD SUGAR WAS 61,ASYMPTOMATIC. APPLE JUICE AND JELLO GIVEN. WILL CONTINUE TO MONITOR.
--- NOTE | 2024-09-11 09:29 | NUR ---
REFUSING LOVENOX AND MIRALAX PATIENT EDUCATED ON WHY THESE MEDICATIONS HAVE BEEN ORDERED FOR HER. PATIENT VERBALIZES UNDERSTANDING BUT IS STILL REFUSING MEDICATIONS. PLAN OF CARE ON GOING.
--- NOTE | 2024-09-11 12:20 | NUR ---
DR TOLLIVER SPOKE WITH DR TOLLIVER REGARDING NEW CONSULT. NEW ORDERS FOR MRCP AT THIS TIME.
--- NOTE | 2024-09-11 13:45 | NUR ---
SPOKE WITH PRIMARY TEAM, STEPHANIE PATTON ABOUT GI'S RECOMMENDATIONS. PAGED DR TOLLIVER TO SPEAK WITH STEPHANIE. SPOKE WITH STEPHANIE PATTON AND HE STATED THEY WILL ADVANCE PATIENT'S DIET TO GI SOFT TO SEE IF PATIENT TOLERATES DIET, MRCP ON HOLD FOR NOW.
--- NOTE | 2024-09-11 19:26 | NUR ---
DISCHARGE PATIENT HAS BEEN DISCHARGED HOME. PIV REMOVED. PRESSURE GAUZE AND TAPE APPLIED TO SITE. PATIENT AND VERBALIZED UNDERSTANDING ON DISCHARGE PAPERWORK. PATIENT WHEELED DOWN TO PRIVATE AUTOMOBILE, ACCOMPANIED BY .
--- NOTE | 2024-09-11 21:08 | DS ---
[facility] DISCHARGE SUMMARY Date Patient Seen: Sep 11, 2024 Time of Visit: 21:07 Supervising Physician: [Dr. Stoddard] Primary Care Physician: Dr. Roby Cornelius Outpatient Specialists: Inpatient Consults: GI-Dr. Tuttle PROBLEM LIST: Common bile duct dilatation, POA Dehydration (ketonuria, elevated BUN) Acute intractable abdominal pain, POA Intra-abdominal infection (neut % 78.8, lymph % 14.4, neut 8.5.) Acute nausea and vomiting, POA hx of Cholecystectomy HOSPITAL COURSE: HPI (per admitting provider) Ms River is a 74-year-old female with no past medical history who presents to the emergency department with generalized abdominal pain onset three days ago associated with nausea nonbloody vomiting x4. Patient denies any diarrhea, constipation, fevers. Reports pain radiates to the back. EKG: SR. CT abdomen and pelvis w/o contrast: The gallbladder is surgically absent and there is significant dilatation of the common bile duct without intrahepatic bile duct dilatation. This probably represents reservoir effect. C hest x-ray: The lungs are clear of infiltrates. The heart is normal in size. The bony and soft tissue structures of the chest are unremarkable. She was admitted for observation. GI was consulted but was not able to evaluate the patient prior to discharge. She continued with IV hydration and her symptoms of N/V and abdominal pain resolved. Just prior to discharge, GI o rdered an MRCP. After evaluating the patient, I discussed the case with Dr. Tuttle, the retail client manager agronomy research manager and relayed the findings and advised him that the patient status is returned to baseline and we would plan to advance diet to see how she tolerates. I spoke with the nurse several hours later who stated that she was able to advance regular diet and tolerated well without nausea, vomiting or abdominal pain. Patient was discharged in stable condition and advised to follow up with GI outpatient for further evaluation, she verbalized understanding. CHRONIC PROBLEMS: continue previous management per PCP unless otherwise indicated DISCHARGE MEDICATIONS: As listed below. Pt hemodynamically stable and afebrile at time of discharge. PCP notified of patients admission, hospital course and discharge. New Medications: Famotidine (Pepcid) 40 Mg Tablet 1 TAB PO HS for 30 Days, #30 TAB 0 Refills PHYSICAL EXAM: GENERAL: alert, weak, awake oriented x 3 HEENT: EOMI, Sclera non icteric, moist mucosa NECK: Supple, no JVD, trachea midline LUNGS: Clear breath sounds bilaterally. No wheezes HEART: Regular rate and rhythm. Normal S1 and S2, without murmurs ABD: Abdomen soft, generalized tenderness. Bowel sounds present EXT: No clubbing cyanosis or edema NEURO: Alert and oriented X3, follows commands FOLLOW-UP: Follow-up with PCP in 2-3 days. Start pepcid 40mg at night. No medications available for review. Continue medical management per PCP. RECOMMENDATIONS: See Discharge Instructions This case was seen and discussed with my supervising physician. More than 30 minutes spent on discharge process, including evaluation of the patient, discussion with nursing staff, medication reconciliation and follow-up appointments STEPHANIE AMAYA Sep 11, 2024 21:08
[2024-09-12] MEDS ORDERED: FAMO40TA75 PO (07:11)
== END 2024-09-11 20:44 | disposition home or self-care (01) ==
LOC: EDH 14:10 → EDHIP 20:32 → 2BH 09-10 08:33 → 3DH 09-11 05:26
PROVIDERS: ADMIT Internal Medicine; ATTEND Internal Medicine
DX: K83.8 Other specified diseases of biliary tract (principal); E86.0 Dehydration; R11.2 Nausea with vomiting, unspecified; I10 Essential (primary) hypertension; R10.84 Generalized abdominal pain; R82.4 Acetonuria; R94.4 Abnormal results of kidney function studies; Z90.49 Acquired absence of other specified parts of digestive tract; Z79.899 Other long term (current) drug therapy
CPT/HCPCS: 96376; 96361; 96375; 99285; 82550; 80076; 84484; 80048 ×2; 83880; 83690; 85025 ×3; 82948 ×8; 83605; 81001; 36415 ×3; 71045; 74176; 93005; 84145; 96372; 96365; 96366 ×3; 84443; 83735; 84100; G0378 ×48; J2270 ×3; J2405; J2470; J1650; J2543 ×5

== ENCOUNTER 2024-11-09 05:44 | Day surgery (SDC) | payer OTHER ==
[~2024-11-09] VITALS: Ht 157.5 cm; Wt 45.4 kg
[2024-11-09] VITALS (10 sets, daily range): BP systolic 91–145; BP diastolic 44–65; PULSE 56–71; RESP 12–20; TEMP 97–97.5
[~2024-11-09 05:44] MED LIST: FAMO40TA75 PO
[2024-11-09] MEDS: 0.9%NACL 1000ML 1,000 ML IV ONE (06:48)
[2024-11-09] MEDS ORDERED: proPOFol 10 MG/ML 20ML VIAL IV ONE (07:03)
[2024-11-09] MEDS ORDERED: LIDOCAINE HCL 400MG/20ML VIAL ONE (07:03)
[2024-11-09] MEDS ORDERED: SIMETHICONE 40 MG/0.6 ML ML ONE (07:08)
--- NOTE | 2024-11-09 08:37 | NUR ---
Full and complete discharge instructions given to Patient and Family both verbally and in writing. Explained GI procedure precautions and follow up. All questions answered. PIV removed with catheter tip intact. Home with Family W/C to POV.
== END 2024-11-09 08:30 | disposition home or self-care (01) ==
LOC: DAH 05:44 → ENDO 05:44
PROVIDERS: ATTEND Internal Medicine Gastroenterology
DX: R93.3 Abnormal findings on diagnostic imaging of other parts of digestive tract (principal); K29.70 Gastritis, unspecified, without bleeding; B96.81 Helicobacter pylori [H. pylori] as the cause of diseases classified elsewhere; K83.8 Other specified diseases of biliary tract; R12 Heartburn; R14.2 Eructation; R93.5 Abnormal findings on diagnostic imaging of other abdominal regions, including retroperitoneum; D64.9 Anemia, unspecified; K21.00 Gastro-esophageal reflux disease with esophagitis, without bleeding; K21.9 Gastro-esophageal reflux disease without esophagitis; F17.210 Nicotine dependence, cigarettes, uncomplicated; Z90.49 Acquired absence of other specified parts of digestive tract; K44.9 Diaphragmatic hernia without obstruction or gangrene; Z98.890 Other specified postprocedural states; Z79.899 Other long term (current) drug therapy
CPT/HCPCS: 43259; 43239; J3490; J7030; J2704; A4620; A4215 ×2; A4223; A4222; A4221; A4663; A4606; 43237